=== PATIENT | male | born 1980 | race Caucasian/White ===

== ENCOUNTER → 2020-11-28 06:59 | Outpatient (CLI) | payer BC, SELFPAY ==
[2020-11-28 20:53] LABS: SARS-CoV-2 RNA PCR Negative
== END ==
PROVIDERS: PCP Family Medicine Sports Medicine; Visit Provider Otolaryngology
DX: Z01.812 Encounter for preprocedural laboratory examination (principal); Z20.822 Contact with and (suspected) exposure to COVID-19
CPT/HCPCS: C9803; U0003; U0005

== ENCOUNTER 2020-12-01 03:10 | Day surgery (SDC) | payer BC, SELFPAY ==
[2020-11-16 15:52] VITALS: BMI 27.4
--- NOTE | 2020-11-30 08:32 | PM.IMHP ---
H&P: HPI History of Present Illness Date/Time: 11/30/20 08:32 patient presents for planned right-sided surgical procedure. No changes in symptoms or his medical history. Chief Complaint: Right-sided tympanic membrane perforation Review of Systems Constitutional: Constitutional: Denies fatigue, Denies fever(s) and Denies lethargy Eyes: Eyes: Denies blurry vision and Denies change in vision ENT: Reports as per HPI Cardiovascular: Cardiovascular: Denies chest pain Respiratory: Respiratory: Denies cough Endocrine: Endocrine: Denies fatigue Hematologic/Lymphatic: Hematologic/Lymphatic: Denies easy bleeding, Denies easy bruising and Denies lymphadenopathy Allergic/Immunologic: Allergic/Immunologic: Denies seasonal rhinorrhea [facility] Family History Family History Father Diabetes mellitus Depression Sibling Depression Social History Social History Smoking packs per day: 0.5 Smoking cigarettes per day: 10.0 Years smoked: 23 Smoking pack-years: 11.50 Smoking status: Current every day smoker Tobacco type: cigarettes Alcohol intake: current Drinks per week: 36 Substance use: never Substance use type: does not use Spiritual care concerns: No Meds Home Medications and Allergies Home Medications Medication Instructions Recorded Confirmed Type atenolol 25 mg tablet 25 mg PO DAILY 11/11/20 11/16/20 History trazodone 50 mg tablet 50 mg PO QHS PRN 11/11/20 11/16/20 History paroxetine HCl 25 mg PO DAILY 11/16/20 11/16/20 History Allergies Allergy/AdvReac Type Severity Reaction Status Date / Time No Known Allergies Allergy Verified 11/16/20 15:51 Exam Const: General: cooperative, healthy appearing, comfortable, well developed and alert HENMT: Head: normal to inspection, normocephalic and atraumatic Ears: hearing grossly normal bilaterally, external ears normal, TM's abnormal bilaterally ( Left retracted right small perforation) and EAC's normal General nose exam: Normal external nose present, Normal nares present, No nasal polyps present, Normal nasal mucous membranes and turbinates present and Normal septum present Face and sinus: normal facial exam Mouth: Yes Normal oral and palatal mucosa present, Yes lip normal, Yes tongue normal, Yes oropharynx normal and Yes moist mucous membranes Teeth and gingiva: dentition normal and gingiva normal Throat: posterior oropharynx normal, tonsils normal and uvula midline Eyes: General: appearance normal, both eyes and all related structures Periorbital: periorbital findings normal Eyelids: eyelids normal Conjunctivae: conjunctivae normal Sclera: sclerae normal Neck: Neck: normal visual inspection, full ROM and no lymphadenopathy Thyroid: thyroid normal Lymphatic: no lymphadenopathy noted Resp: Effort & Inspection: normal respiratory effort and able to speak in complete sentences Cardio: Jugular venous distension: no JVD Neuro: Cranial nerves: Yes CN's II-XII intact bilaterally Assessment and Plan Assessment and plan (1) Unspecified perforation of tympanic membrane, right ear: Code(s): H72.91 - Unspecified perforation of tympanic membrane, right ear Status: Acute Assessment and Plan: plan is for the OR for right-sided epi disc laryngoplasty. Risks risk ostia including bleeding infection damage to facial nerve deafness change in hearing and the need for further procedures. Patient voiced understanding of these risks and agreed.
--- NOTE | 2020-11-30 09:27 | WPDANESEPPF ---
Anes - Initial Pre Proc Eval Procedure: Operation Date: 12/01/20 08:00 Proposed Procedures p Right Myringoplasty with paper patch - Paulo Hatr MD Date/Time: 11/30/20 09:27 Surgeon: Paulo Hart MD Pre Op Diagnosis: right tympanic membrance perforation Patient Data Age: 40 Gender: M Height: 1.63 m Weight: 72.5 kg Allergies Allergy/AdvReac Type Severity Reaction Status Date / Time No Known Allergies Allergy Verified 11/16/20 15:51 Home Medications Medication Instructions Recorded Confirmed Type atenolol 25 mg tablet 25 mg PO DAILY 11/11/20 11/16/20 History trazodone 50 mg tablet 50 mg PO QHS PRN 11/11/20 11/16/20 History paroxetine HCl 25 mg PO DAILY 11/16/20 11/16/20 History Patient hx anesthesia problems: none Family hx anesthesia problems: none [facility] Past Medical History Medical History (Updated 11/30/20 @ 09:28 by Rancho Do MD) ADHD Anxiety Back pain Depression Unspecified perforation of tympanic membrane, right ear Family History Family History Father Diabetes mellitus Depression Sibling Depression Social History Social History Smoking packs per day: 0.5 Smoking cigarettes per day: 10.0 Years smoked: 23 Smoking pack-years: 11.50 Smoking status: Current every day smoker Tobacco type: cigarettes Alcohol intake: current Drinks per week: 36 Substance use: never Substance use type: does not use Living arrangements: with family Spiritual care concerns: No Anes - Eval Final PreProcedure Day of Procedure 11/30/20 09:27 Patient weight: overweight Heart: regular rate and rhythm Lungs: clear to auscultation and normal air movement Airway: Mallampati scale class II Neurological: alert and oriented Last oral intake: >/= 8 hours ASA classification: II Emergent: no Anesthetic plan: proceed Anesthesia type and monitoring: general GIVS and LMA Informed Consent: The patient's anesthetic plan and its attendant risks and benefits were discussed with the patient/family/POA. Questions were solicited and answers provided to the satisfaction of the patient/family/POA.
[2020-12-01] VITALS (7 sets, daily range): BP systolic 94–118; BP diastolic 58–73; PULSE 68–82; RESP 8–20; TEMP 36.3–36.7; O2SAT 96–99
--- NOTE | 2020-12-01 07:07 | WPDHPUPDATE1 ---
History and Physical Update Update Date/Time: 12/01/20 07:07 History and Physical has been reviewed, including an updated exam of the patient. There are NO changes in the patient's condition. Risks, benefits, and alternatives have been discussed and questions answered. Patient agrees to proceed with procedure.
[2020-12-01] MEDS: ACETAMINOPHEN 500 MG TABLET 1000 MG PO (07:08)
[2020-12-01] MEDS: LACTATED RINGERS 1,000 ML 30 ML IV CONT (07:08)
[2020-12-01] MEDS: ceFAZolin 2 GM/D5W 50 ML 2 GM/50 ML BAG IVPB (07:59)
--- NOTE | 2020-12-01 08:27 | PM.PROC ---
Procedure Note - Detailed Date of procedure: 12/01/20 Pre-op diagnosis: right tympanic membrance perforation Post-op diagnosis: same Procedure performed: Right epi disc myringoplasty Description of procedure: The patient was correctly identified and consent was verified in the preoperative holding area. The patient was then brought to the operating room and a time-out was performed. General anesthesia was induced and an LMA was secured the patient's airway the patient was then draped for the aforementioned procedures. The right EAC was examined and cerumen removed with a ring curette. Of note there was a approximately 15% perforation with monomeric edges these monomeric edges were removed and the perforation rimmed. It was located in the superior anterior quadrant. Once the edges were appropriately rimmed and all low vascularity monomeric membrane removed the epi disc was fashioned and placed with all edges of the epi disc in good contact with the perforation. Care the patient was then turned over to Anesthesiology. I performed all dictated portions of the procedure. Anesthesia: GLMA Surgeon: Paulo Hart MD Estimated blood loss (mL): 0 Drains: No Packing: No Pathology: none sent Complications: No immediate complications Condition: stable Disposition: PACU Findings: Right-sided approximately 15% perforation monomeric edges had to be removed to ensure adequate vascular supply to the healing tympanic membrane
== END 2020-12-01 09:27 | disposition home or self-care (01) ==
PROVIDERS: PCP Family Medicine Sports Medicine; Visit Provider Otolaryngology
PROC: (CPT 69424; principal; 2020-12-01 08:00)
DX: H72.91 Unspecified perforation of tympanic membrane, right ear (principal); F90.9 Attention-deficit hyperactivity disorder, unspecified type; F41.9 Anxiety disorder, unspecified; F32.9 Major depressive disorder, single episode, unspecified; E66.3 Overweight; Z68.27 Body mass index [BMI] 27.0-27.9, adult; F17.210 Nicotine dependence, cigarettes, uncomplicated
CPT/HCPCS: 69610; A9270; C1763; J0690; J3010; J7120